=== PATIENT | female | born 1950 | race Caucasian/White ===

== ENCOUNTER 2020-08-14 11:11 | Emergency (ER) | payer MEDICARE ==
[~2020-08-14] VITALS: Ht 165.1 cm; Wt 84.1 kg
[2020-08-14] MEDS ORDERED: acetaminophen 325mg tablet PO ONE (13:20)
[2020-08-14] MEDS ORDERED: normal saline 1000ml 1,000 ML IV ONE (13:20)
--- NOTE | 2020-08-14 13:27 | NUR ---
[facility] 1325
[2020-08-14 13:47] LABS: BASOPHILS % (AUTO) 0.4 % (0-1); EOSINOPHILS % (AUTO) 0.1 % (0-6); HEMATOCRIT 28.8 % (35.0-45.0); HEMOGLOBIN 8.9 g/dl (12.0-16.0); LYMPHOCYTES # (AUTO) 0.7 X10'3 (1.1-4.8); LYMPHOCYTES % (AUTO) 7.4 % (21-51); MEAN CORPUSCULAR HGB CONC 30.8 g/dL (33.0-36.5); MEAN CORPUSCULAR VOLUME 74.7 FL (78-98); MEAN PLATELET VOLUME 9.2 FL (7.4-10.4); MONOCYTES % (AUTO) 10.2 % (2-12); NEUTROPHILS # (AUTO) 8.2 X10'3 (1.8-7.7); NEUTROPHILS % (AUTO) 81.9 % (42-75); PLATELET COUNT 232 X10'3 (140-440); RED BLOOD COUNT 3.85 X10'6 (4.20-5.60)
[2020-08-14 14:07] LABS: ALANINE AMINOTRANSFERASE 29 U/L (12-78); ALBUMIN 3.2 G/DL (3.4-5.0); ALBUMIN/GLOBULIN RATIO 0.8 (1.1-1.5); ALKALINE PHOSPHATASE 111 IU/L (46-116); ANION GAP 12 (8-16); ASPARTATE AMINO TRANSFERASE 27 U/L (10-37); BILIRUBIN,TOTAL 1.2 MG/DL (0.1-1.0); BLOOD UREA NITROGEN 10 MG/DL (7-18); BUN/CREATININE RATIO 13.3 (6.6-38.0); CALCIUM 8.1 MG/DL (8.5-10.1); CHLORIDE 104 MMOL/L (99-107); CREATININE 0.75 MG/DL (0.40-0.90); GLUCOSE 120 MG/DL (70-104); MAGNESIUM 2.1 MG/DL (1.5-2.4); POTASSIUM 3.5 MMOL/L (3.5-5.1); SODIUM 141 MMOL/L (135-145); TOTAL CARBON DIOXIDE 25.4 MMOL/L (24-32); eGFR 76 ML/MIN
[2020-08-14 15:01] LABS: CLARITY,URINE CLOUDY (Clear); COLOR,URINE YELLOW (Yellow); GLUCOSE, URINE NEGATIVE (Neg); KETONES,URINE NEGATIVE (Neg); LEUKOCYTE ESTERASE ,URINE MODERATE (Neg); NITRITES, URINE POSITIVE (Neg); OCCULT BLOOD,URINE MODERATE (Neg); PROTEIN,URINE NEGATIVE (Neg)
[2020-08-14 15:08] LABS: UA COLLECTION TYPE CLN CATCH MIDSTREAM
[2020-08-14 15:14] LABS: SQUAMOUS EPITHELIAL CELL,UR MANY /LPF (FEW)
[2020-08-14 15:15] LABS: BACTERIA,URINE 3+ /HPF (Neg); WBC,URINE TNTC /HPF (0-4)
[2020-08-14] MEDS ORDERED: CEPH-585 PO (15:28)
[2020-08-14] MEDS ORDERED: CefTRIAXone/D5W-Rocephin 1gm 50 ML IV ONE (15:30)
[2020-08-14 16:15] VITALS: BP 128/64
--- NOTE | 2020-08-15 10:56 | NUR ---
Reviewed patients information for treatment due to preliminary results of gram negative rods in aerobic bottle. No need to follow up with patient at this time per Dr. Parker. Will await sensitive and final report.
== END 2020-08-14 16:26 | disposition home or self-care (01) ==
LOC: ER 11:11
DX: N39.0 Urinary tract infection, site not specified (principal); Z20.822 Contact with and (suspected) exposure to COVID-19; R50.9 Fever, unspecified; Z88.1 Allergy status to other antibiotic agents; Z88.2 Allergy status to sulfonamides; Z88.8 Allergy status to other drugs, medicaments and biological substances; Z79.2 Long term (current) use of antibiotics
CPT/HCPCS: 36415; 71045; 80053; 81001; 83605; 83735; 84145; 85025; 87040; 87077; 87186; 87635; 93005; 96361; 96365; 99285; C9803; J0696; J7030